=== PATIENT | male | born 1980 | race Caucasian/White ===

== ENCOUNTER 2023-08-12 19:26 | Emergency (ER) | payer BC ==
[~2023-08-12] VITALS: Ht 177 cm; Wt 122.0 kg
--- NOTE | 2023-08-12 19:54 | ED Chest Pain ---
General Chief Complaint: Cardiac/General Problems Stated Complaint: CHEST DISCOMFORT, RADIATING TO LEFT ARM Nursing Triage Note: PT TO RM 5 WITH C/O CP THAT HAS STARTED A FEW WEEKS AGO "OFF AND ON" AND HAS BEEN WORSE TODAY. CP TODAY STARTED IN STERNAL AREA AND RADIATES TO LEFT ARM. PT DESCRIBES PAIN "BURNING AND SHARP" 5/10. PT WENT TO [facility] THIS AM FOR SAME COMPLAINT, REPORTS EKG UNREMARKABLE, WAS SENT HOME WITH SCRIPT OF PRILOSEC AND TOOK FIRST DOSE TODAY. Source: patient Exam Limitations: no limitations History of Present Illness Date Seen by Provider: Aug 12, 2023 Time Seen by Provider: 19:48 Initial Comments This is a 43-year-old male with a history of GERD and HLD to room 5 with complaints of intermittent burning chest pain and sour burps for the past several weeks, which he attributes to GERD. Describes as burning pain that will sometimes be sharp and shoots across his left chest and causes an aching sensation down his left arm. Rates pain 5 out of 10 at this time. Was seen in [facility] for same complaint, had normal EKG sent home with Rx for Prilosec. States he did take his first dose but does not feel this has improved his symptoms at all. Pain has stayed around a 4-6 all day. No aggravating or alleviating factors. Did try two Ibuprofen with no improvement of symptoms. Earlier today while driving he had pain in his left pectoral region and had aching heaviness in his left hand. 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 This lasted about 60 seconds. No recent activities of heaving lifting or pulling. No shortness of breath, nausea, vomiting. Denies tobacco use. Occasional alcohol. Does have family history of heat disease. Timing/Duration: intermittent Severity/Quality: mild, burning, sharp Location: substernal Radiation: arms (left arm ) Associated Symptoms: No back pain, No dizziness, No fatigue, No fever/chills, No nausea/vomiting, No shortness of breath Allergies and Home Medications Allergies Coded Allergies: No Known Drug Allergies (Unverified , 07/08/15) Patient Home Medication List Home Medication List Reviewed: Yes Sucralfate (Carafate) 1 Gram Tablet, 1 GM PO TID Prescribed by: JALEN GAINES on 08/12/232057 Review of Systems Review of Systems Constitutional: see HPI EENTM: No Symptoms Reported Respiratory: No Symptoms Reported Cardiovascular: See HPI Gastrointestinal: See HPI Genitourinary: No Symptoms Reported Musculoskeletal: see HPI Skin: no symptoms reported Psychiatric/Neurological: No Symptoms Reported Endocrine: No Symptoms Reported Hematologic/Lymphatic: No Symptoms Reported Past Byydgfv-Lgzkrr-Sdftkg Hx Patient Social History Tobacco Use?: No Substance use?: No Alcohol Use?: Yes Alcohol type: Beer, Hard Liquor Alcohol Frequency: Daily Pt feels they are or have been: No Immunizations Up To Date Tetanus Booster (TDap): Unknown Influenza Vaccine Up-to-Date: Yes; Up-to-Date Third COVID19 Vaccination Date: JUN 2023 Seasonal Allergies Seasonal Allergies: No Past Medical History Reproductive Disorders: No Physical Exam Vital Signs Vital Signs - First Documented 08/12/23 19:31 Temp 36.7 Pulse 80 Resp 18 B/P (MAP) 176/134 (148) Pulse Ox 99 O2 Delivery Room Air Capillary Refill : Height, Weight, BMI Height: 5'10.00" Weight: 238lbs. 0.0oz. 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 Sensation intact bilaterally upper and lower ext. ) Skin: Normal Color, Warm/Dry Progress/Results/Core Measures Results/Orders Lab Results Laboratory Tests Test 08/12/23 19:34 Range/Units White Blood Count 7.2 4.3-11.0 10^3/uL Red Blood Count 5.22 4.30-5.52 10^6/uL Hemoglobin 15.4 13.3-17.7 g/dL Hematocrit 46 40-54 % Mean Corpuscular Volume 88 80-99 fL Mean Corpuscular Hemoglobin 30 25-34 pg Mean Corpuscular Hemoglobin Concent 34 32-36 g/dL Red Cell Distribution Width 11.9 10.0-14.5 % Platelet Count 301 130-400 10^3/uL Mean Platelet Volume 9.0 9.0-12.2 fL Immature Granulocyte % (Auto) 0 % Neutrophils (%) (Auto) 56 42-75 % Lymphocytes (%) (Auto) 34 12-44 % Monocytes (%) (Auto) 8 0-12 % Eosinophils (%) (Auto) 1 0-10 % Basophils (%) (Auto) 0 0-10 % Neutrophils # (Auto) 4.0 1.8-7.8 10^3/uL Lymphocytes # (Auto) 2.4 1.0-4.0 10^3/uL Monocytes # (Auto) 0.6 0.0-1.0 10^3/uL Eosinophils # (Auto) 0.1 0.0-0.3 10^3/uL Basophils # (Auto) 0.0 0.0-0.1 10^3/uL Immature Granulocyte # (Auto) 0.0 0.0-0.1 10^3/uL Prothrombin Time 13.0 12.2-14.7 SEC INR Comment 0.9 0.8-1.4 Activated Partial Thromboplast Time 26 24-35 SEC D-Dimer 0.47 0.00-0.49 UG/ML Sodium Level 139 135-145 MMOL/L Potassium Level 4.1 3.6-5.0 MMOL/L Chloride Level 103 98-107 MMOL/L Carbon Dioxide Level 24 21-32 MMOL/L Anion Gap 12 5-14 MMOL/L Blood Urea Nitrogen 19 H 7-18 MG/DL Creatinine 1.17 0.60-1.30 MG/DL Estimat Glomerular Filtration Rate 80 BUN/Creatinine Ratio 16 Glucose Level 106 H 70-105 MG/DL Calcium Level 9.6 8.5-10.1 MG/DL Corrected Calcium 8.5-10.1 MG/DL Magnesium Level 2.0 1.6-2.4 MG/DL Total Bilirubin 0.5 0.1-1.0 MG/DL Aspartate Amino Transf (AST/SGOT) 24 5-34 U/L Alanine Aminotransferase (ALT/SGPT) 37 0-55 U/L Alkaline Phosphatase 69 40-136 U/L Total Creatine Kinase 107 30-200 U/L Creatine Kinase MB 1.1 <6.6 NG/ML Myoglobin 26.4 10.0-92.0 NG/ML Troponin I < 0.028 <0.028 NG/ML C-Reactive Protein High Sensitivity 0.35 0.00-0.50 MG/DL Total Protein 7.9 6.4-8.2 GM/DL Albumin 4.6 H 3.2-4.5 GM/DL Lipase 30 8-78 U/L My Orders Orders - JALEN GAINES APRN Ekg Tracing (08/12/23 19:31) Troponin I Sybil (08/12/23 19:45) Chest 1 View, Ap/Pa Only (08/12/23 19:45) Monitor-Rhythm Ecg Trace Only (08/12/23 19:45) Cbc And Automated Diff (08/12/23 19:45) Magnesium (08/12/23 19:45) Comprehensive Metabolic Panel (08/12/23 19:45) Myoglobin Serum (08/12/23 19:45) Protime With Inr (08/12/23 19:45) Partial Thromboplastin Time (08/12/23 19:45) O2 (08/12/23 19:45) Ed Iv/Invasive Line Start (08/12/23 19:45) Creatine Kinase (08/12/23 19:45) Creatine Kinase Mb (08/12/23 19:45) Lipase (08/12/23 19:45) Fibrin Degradation Products (08/12/23 19:45) Hs C Reactive Protein (08/12/23 19:45) Helicobacter Pylori Liya Igg (08/12/23 19:45) Lidocaine 2% Viscous 15 Ml (Xylocaine Vi (08/12/23 20:45) Antacid Suspension (Antacid Suspension (08/12/23 20:45) Medications Given in ED Current Medications Medications Dose Ordered Sig/Nicole Route Start Time Stop Time Status Last Admin Dose Admin Al Hydrox/Mg Hydrox/Simethicone 30 ml ONCE ONCE PO 08/12/23 20:45 08/12/23 20:46 DC 08/12/23 20:50 30 ML Lidocaine HCl 15 ml ONCE ONCE PO 08/12/23 20:45 08/12/23 20:46 DC 08/12/23 20:50 15 ML Vital Signs/I&O 08/12/23 08/12/23 19:31 21:17 Temp 36.7 Pulse 80 80 Resp 18 B/P (MAP) 176/134 (148) 134/90 Pulse Ox 99 98 O2 Delivery Room Air Room Air Blood Pressure Mean: 148 Progress Progress Note : Progress Note This is a well-appearing 43-year-old male, upon arrival he is noted to be hypertensive. No known prior history of hypertension. He does have history of GERD and HLD, was started on Prilosec today. He does occasionally drink alcohol, no tobacco use. No prior cardiac history. Denies any recent heavy lifting or exercise. Initial EKG sinus rhythm with a rate of 88 no acute ischemic changes appreciated. We will go ahead an initiate cardiac work-up, pain is 4 out of 10 at this time unchanged from all day today. Has no shortness of breath, PERC score 0, however given sharp pain in chest will order a D-dimer and if positive will order CT angio chest to rule out PE. He was in [place] last month but has no other extended travel. Has no history of DVTs. Differential includes IL, PE, PNA, pericarditis, musculoskeletal injury, gastritis versus H. pylori versus peptic ulcer. ASCVD 1%. CXR negative for PNA, pneumothroax, masses. CBC reviewed, WBC-7.2, Hgb-15.4, Hct-46, PLT-301, CMP: NA-139, K-4.1, GFR-80, troponin <0.028, CRP-0.35, kenneth 26.4, CKMB-1.1, CK-107, Ddimer-0.47, Hpylori pending. Given GI cocktail in clinic. No pain in middle of chest but will have intermittent sharp pains into arm. Has f/u scheduled with PCP tomorrow. Will add Carafate to trial until Hpylori results. Strict return precautions discussed. Verbalized understanding. Initial ECG Impression Date: Aug 12, 2023 Initial ECG Impression Time: 19:35 Initial ECG Rate: 88 Initial ECG Rhythm: Normal Sinus Initial ECG Intervals: Normal Initial ECG Impression: Normal Diagnostic Imaging Diagonstic Imaging: Xray Plain Films/CT/US/NM/MRI: chest Comments [facility] [place], [place] NAME: SUKHJINDER APODACA Korina [facility] REC#: [id number] PT STATUS: REG ER : 1980 PHYSICIAN: JALEN GAINES APRN ADMIT DATE: 08/12/23/ER Signed Date of Exam:08/12/23 CHEST 1 VIEW, AP/PA ONLY EXAMINATION: Chest 1 view HISTORY: Chest pain COMPARISON: None available. FINDINGS: Heart size and pulmonary vasculature are normal. There are low lung volumes without consolidation, pleural effusion or pneumothorax. The osseous structures are intact. IMPRESSION: 1. No acute radiographic abnormality in the chest. Dictated by: Dictated on workstation # [id number] Dict: 08/12/232001 Trans: 08/12/232006 CVB [id number] Interpreted by: SABINO DURAN DO Electronically signed by: SABINO DURAN DO 08/12/232006 Departure Impression Primary Impression: Non-cardiac chest pain Disposition: 01 HOME, SELF-CARE Condition: Improved Departure-Patient Inst. Decision time for Depature: 20:50 Referrals: EDUARDO PINEDA MD (PCP/Family) Primary Care Physician Patient Instructions: Chest Pain, Adult ED Add. Discharge Instructions: Plan: 1. Continue Prilosec daily. 2. Call [phone] at the end of the week to check status of your H-Pylori test, if positive will need to f/u with your PCP to treat. 3. If you have new, worsening, or concerning symptoms return to ER. 4. Keep follow up with Dr. Pineda tomorrow as directed. All discharge instructions reviewed with patient and/or family. Voiced understanding. Scripts Sucralfate (Carafate) 1 Gram Tablet 1 GM PO TID for 14 Days, #42 TAB 0 Refills Prov: JALEN GAINES APRN 08/12/23 Copy Copies To 1: EDUARDO PINEDA MD, STORMY D APRN Aug 12, 2023 19:54
[2023-08-12 20:02] LABS: BASOPHILS % (AUTO) 0 % (0-10); EOSINOPHILS # (AUTO) 0.1 10^3/uL (0.0-0.3); EOSINOPHILS % (AUTO) 1 % (0-10); HEMATOCRIT 46 % (40-54); HEMOGLOBIN 15.4 g/dL (13.3-17.7); LYMPHOCYTES # (AUTO) 2.4 10^3/uL (1.0-4.0); LYMPHOCYTES % (AUTO) 34 % (12-44); MEAN CORPUSCULAR HEMOGLOBIN 30 pg (25-34); MEAN CORPUSCULAR HGB CONC 34 g/dL (32-36); MEAN CORPUSCULAR VOLUME 88 fL (80-99); MONOCYTES # (AUTO) 0.6 10^3/uL (0.0-1.0); MONOCYTES % (AUTO) 8 % (0-12); NEUTROPHILS % (AUTO) 56 % (42-75); PLATELET COUNT 301 10^3/uL (130-400); WHITE BLOOD COUNT 7.2 10^3/uL (4.3-11.0)
[2023-08-12 20:06] LABS: ALBUMIN 4.6 GM/DL (3.2-4.5)
--- NOTE | 2023-08-12 20:06 | Diagnostic Imaging Report ---
EXAMINATION: Chest 1 view HISTORY: Chest pain COMPARISON: None available. FINDINGS: Heart size and pulmonary vasculature are normal. There are low lung volumes without consolidation, pleural effusion or pneumothorax. The osseous structures are intact. IMPRESSION: 1. No acute radiographic abnormality in the chest. Dictated by: Dictated on workstation # [id number]
[2023-08-12 20:08] LABS: CALCIUM 9.6 MG/DL (8.5-10.1); INR 0.9 (0.8-1.4)
[2023-08-12 20:09] LABS: GLUCOSE 106 MG/DL (70-105); TOTAL PROTEIN 7.9 GM/DL (6.4-8.2)
[2023-08-12 20:10] LABS: CARBON DIOXIDE 24 MMOL/L (21-32)
[2023-08-12 20:11] LABS: BILIRUBIN,TOTAL 0.5 MG/DL (0.1-1.0); FIBRIN DEGRADATION PRODUCTS 0.47 UG/ML (0.00-0.49)
[2023-08-12 20:12] LABS: ALKALINE PHOSPHATASE 69 U/L (40-136)
[2023-08-12 20:13] LABS: CREATININE SERUM 1.17 MG/DL (0.60-1.30); GFR ESTIMATED 80
[2023-08-12 20:14] LABS: BUN/CREATININE RATIO 16
[2023-08-12 20:15] LABS: ALANINE AMINOTRANSFERASE 37 U/L (0-55)
[2023-08-12 20:17] LABS: CREATINE KINASE 107 U/L (30-200); LIPASE 30 U/L (8-78)
[2023-08-12 20:23] LABS: CREATINE KINASE MB 1.1 NG/ML (<6.6)
[2023-08-12] MEDS ORDERED: ANTACID SUSPENSION 30 ML UDC PO ONE (20:45)
[2023-08-12] MEDS ORDERED: LIDOCAINE 2% VISCOUS 15 ML UDC PO ONE (20:45)
[2023-08-12 20:47] LABS: CHLORIDE 103 MMOL/L (98-107); POTASSIUM 4.1 MMOL/L (3.6-5.0); SODIUM 139 MMOL/L (135-145)
[2023-08-12] MEDS ORDERED: SUCR1TAB36 PO (20:58)
[2023-08-12 21:17] VITALS: BP 134/90
== END 2023-08-12 21:18 | disposition home or self-care (01) ==
LOC: EDUNIT# 19:26 → ER 19:30
DX: R07.89 Other chest pain (principal); Z87.19 Personal history of other diseases of the digestive system
CPT/HCPCS: 36415; 71045; 80053; 82550; 82553; 83690; 83735; 83874; 84484; 85025; 85379; 85610; 85730; 86141; 86677; 93005; 93041